=== PATIENT | male | born 1970 | race Caucasian/White ===

== ENCOUNTER 2019-03-30 12:14 | Emergency (ER) | payer SELFPAY ==
[~2019-03-30] VITALS: Ht 170.2 cm; Wt 53.5 kg
--- NOTE | 2019-03-30 12:22 | NUR ---
PT BIBRA FROM THE STREETS, ALTERED HYPOTENSIVE AND TACHYCARDIC. 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
--- NOTE | 2019-03-30 12:25 | NUR ---
SEEN AND EXAMINED BY .
[2019-03-30] MEDS ORDERED: IV NS 0.9% 1,000 ML BAG IV ONE ×2 (12:30→13:00)
--- NOTE | 2019-03-30 12:30 | NUR ---
IV LINE ESTABLISHED, BLOOD DRAWNED AND SENT TO LAB.
[2019-03-30 12:35] LABS: BASOPHILS % (AUTO) 0.4 % (0.0-2.0); HEMATOCRIT 49 % (39-51); HEMOGLOBIN 17.2 g/dL (13.5-17.5); LYMPHOCYTES # (AUTO) 0.7 /CMM (0.8-4.8); LYMPHOCYTES % (AUTO) 9.5 % (20.0-44.0); MEAN CORPUSCULAR HGB CONC 35 g/dl (31.0-36.0); MEAN CORPUSCULAR VOLUME 87 fL (80-96); MONOCYTES # (AUTO) 1.6 /CMM (0.1-1.30); NEUTROPHILS % (AUTO) 68.1 % (43.0-81.0); PLATELET COUNT (AUTO) 179 /CMM (150-450); RED BLOOD CELL COUNT(AUTO) 5.61 MIL/uL (4.5-6.0); WHITE BLOOD COUNT (AUTO) 7.4 K/uL (4.3-11.0)
--- NOTE | 2019-03-30 12:39 | NUR ---
URINE SPECIMEN COLLECTED AND SENT TO LAB.
--- NOTE | 2019-03-30 12:42 | NUR ---
LAB MANAGER AT BEDSIDE FOR XRAY.
[2019-03-30 12:43] LABS: APPEARANCE,URINE Clear (CLEAR); BILIRUBIN,URINE LARGE (NEGATIVE); BLOOD, URINE Negative Ery/uL (NEGATIVE); CARBON DIOXIDE 32 mmol/L (21-32); CHLORIDE 83 mmol/L (98-107); KETONES,URINE 15 (NEGATIVE); LEUKOCYTE ESTERASE ,URINE Negative (NEGATIVE); NITRITE, URINE Negative (NEGATIVE); PROTEIN,URINE 100 mg/dl (NEGATIVE); SODIUM SERUM 130 mmol/L (136-145); UGLUCOSE 100 MG/DL mg/dL (NEGATIVE); UROBILINOGEN,URINE >=8.0 EU/dL (0.2)
[2019-03-30 12:44] LABS: CALCIUM, SERUM 9.7 mg/dL (8.5-10.1); CREATININE 2.3 mg/dL (0.6-1.3); GLUCOSE 264 mg/dL (74-106); UREA NITROGEN, BLOOD 53 mg/dL (7-18)
[2019-03-30 12:45] LABS: POTASSIUM 2.5 mmol/L (3.5-5.1)
[2019-03-30 12:46] LABS: COLOR,URINE AMBER (YELLOW)
[2019-03-30 12:47] LABS: BACTERIA,URINE Rare /HPF (None Seen); SQUAMOUS EPITHELIAL CELL,UR Rare /HPF (None Seen); WBC,URINE 0-2 /HPF (0-3)
[2019-03-30 12:49] LABS: ALANINE AMINOTRANSFERASE 61 U/L (12-78); ALBUMIN 3.5 g/dL (3.4-5.0); ALKALINE PHOSPHATASE 114 U/L (46-116); ASPARTATE AMINOTRANSFERASE 44 U/L (15-37); BILIRUBIN,DIRECT 1.5 mg/dL (0.0-0.2); BILIRUBIN,TOTAL 3.5 mg/dL (0.2-1.0); TOTAL PROTEIN, SERUM 8.4 g/dL (6.4-8.2)
[2019-03-30] MEDS ORDERED: CEFTRIAXONE 1GM BAG (ER ONLY) 50 ML IV ONE ×2 (13:00→13:31)
[2019-03-30] MEDS ORDERED: POTASSIUM CL. PREMIX PERIPHER. 50 ML IV SCH ×2 (13:00→17:00)
[2019-03-30 13:21] LABS: ACETAMINOPHEN 0 ug/ml (10-30); ALCOHOL, BLOOD < 3 mg/dL (0-0); SALICYLATE 1.9 mg/dL (2.8-20.0)
[2019-03-30] MEDS ORDERED: POTASSIUM CL. PREMIX PERIPHER. 100 ML ONE (13:31)
--- NOTE | 2019-03-30 13:38 | NUR ---
PT WHEELED TO CT SCAN VIA [employer].
[2019-03-30] MEDS ORDERED: IV NS 0.9% 1,000 ML IV PRN (13:57)
[2019-03-30] MEDS ORDERED: MAG HYDROX/AL HYDROX/SIMETH 30 ML UDC PO PRN (14:00)
[2019-03-30] MEDS ORDERED: MAGNESIUM HYDROXIDE 30 ML UDC PO PRN (14:00)
[2019-03-30] MEDS ORDERED: ZOLPIDEM TARTRATE 5 MG TABLET PO PRN (14:00)
[2019-03-30] MEDS ORDERED: ONDANSETRON HCL/PF 4 MG/2 ML VIAL IVP PRN (14:00)
[2019-03-30] MEDS ORDERED: Z GUARD REMEDY 2 OZ OINT TP PRN (14:00)
[2019-03-30] MEDS ORDERED: HYDROCODONE/APAP 5/325MG 1 EACH TABLET PO PRN (14:00)
[2019-03-30] MEDS ORDERED: ACETAMINOPHEN 325 MG TABLET PO PRN (14:00)
[2019-03-30] MEDS ORDERED: CEFTRIAXONE 1 G in IV D5W 50 ML IV SCH (14:00)
[2019-03-30] MEDS ORDERED: PROPOFOL 100 ML IV ONE (14:23)
--- NOTE | 2019-03-30 14:25 | NUR ---
ETOMIDATE 20MG AND SUCC 120MG IVP GIVEN VERBAL ORDERED BY
--- NOTE | 2019-03-30 14:29 | NUR ---
ET TUBE INSERTED BY , ET SIZE 7.5, 23 AT THE LIP, +COLOR CHANGE, + BILATERAL CHEST RISE AND LUNG SOUND.
--- NOTE | 2019-03-30 14:29 | NUR ---
@ 1429 PT. INTUBATED BY KINDRA WILKINSON FOR AIRWAY PROTECTION WITH 7.5 ET TUBE SECURED @ 23 CM LIPLINE. CO2 COLOR CHANGED TO GOLD COLOR POST INTUBATION WITH CLEAR BREATH SOUNDS BILATERAL. CHEST RISE SYMMETRICAL ON POST INTUBATION. VENT SETTINGS BELOW PER DR. HEDRICK: AC 14 VT 500 FIO2 30% NO PEEP VENT ALARMS ARE ON AND FUNCTIONING WITH AMBUBAG @ BEDSIDE. Addendum: 03/30/19 at 1509 by DAVID ZIMMERMAN RT Amended: Links added.
[2019-03-30] MEDS ORDERED: ETOMIDATE 2 MG/ML VIAL IV ONE (14:30)
[2019-03-30] MEDS ORDERED: LEVETIRACETAM (500MG) 500 MG in IV NS 0.9% 100 ML IV ONE (14:30)
[2019-03-30] MEDS ORDERED: PROPOFOL 100 ML ONE ×3 (14:30→22:05)
[2019-03-30] MEDS ORDERED: SUCCINYLCHOLINE CHLORIDE 20 MG/ML VIAL IV ONE (14:30)
--- NOTE | 2019-03-30 14:37 | NUR ---
CALLED [facility] FOR TRANSFER, FAXED CLINICALS AND FACE SHEET; WAITING FOR CALL BACK
--- NOTE | 2019-03-30 14:40 | NUR ---
RT AT BEDSIDE FOR MECH VENT SET UP.
--- NOTE | 2019-03-30 14:45 | NUR ---
SALESPERSON FURS AT BEDSIDE FOR XRAY.
[2019-03-30] MEDS ORDERED: ENOXAPARIN SODIUM 40 MG/0.4 ML DISP.SYRIN SQ SCH (15:00)
[2019-03-30 16:24] LABS: ABG BASE EXCESS 2.7 mmol/L; ABG OXYGEN SATURATION 93.8 % (92.0-98.5); ABG PCO2 33.6 mmHg (35.0-45.0); ABG PH 7.497 (7.350-7.450); ABG PO2 68.3 mmHg (75.0-100.0); AaDO2 106.1 mmHg; COHb 1.1 % (0.5-1.5); MetHb 0.5 % (0.0-1.5); O2Hb 92.3 % (94.0-97.0); PEEP,BG 0 cm H2O; SITE, ABG Right Radial; VT, ABG 500 mL
--- NOTE | 2019-03-30 16:57 | NUR ---
TRANSFER INFO: GOING TO [facility] # FOR REPORT: [phone] ACCEPTED BY Rafy WYMAN
[2019-03-30] MEDS ORDERED: CEFTRIAXONE 1GM BAG (ER ONLY) 1 GM/50 ML PIGGYBACK IV ONE (17:00)
[2019-03-30] MEDS ORDERED: LEVETIRACETAM (500MG) 500 MG in IV NS 0.9% 100 ML IV SCH (17:00)
[2019-03-30 17:05] LABS: MAGNESIUM 2.3 mg/dL (1.8-2.4); PHOSPHORUS 1.9 mg/dL (2.5-4.9)
--- NOTE | 2019-03-30 17:05 | NUR ---
[facility] [place] # [id number]
--- NOTE | 2019-03-30 17:05 | NUR ---
CALLED FOR [facility], [phone] ETA, TRIP # [id number]
--- NOTE | 2019-03-30 19:45 | NUR ---
CALLED [facility] ER FOR REPORT NO ANSWER, RN NOT AVAILABLE.
--- NOTE | 2019-03-30 21:07 | NUR ---
MARY FROM [facility] CALLED FOR REPORT; PER MARY, GET ORDER FOR A SECOND HEAD CT, PER THEIR PROTOCOL, 2ND HEAD CT HAS TO BED DONE AFTER 4HRS. CALL THEM FOR REPORT ONCE CT RESULT IS BACK AND CALL WHEN [facility] IS HERE.
--- NOTE | 2019-03-30 21:55 | NUR ---
BACK FROM CT
[2019-03-30 22:24] VITALS: BP 103/69
--- NOTE | 2019-03-30 22:29 | NUR ---
[facility] transport in facility, report given to rn for [facility]; pt left via private ambulance -[facility], with 2 fast food crew lead, vital signs recorded per protocol, pt to [facility] er, called lashanda choi at [facility] for update, eta of 40mins. dr. hagan aware of pt transfer. dr. scott at [facility]
== END 2019-03-30 22:33 | disposition other institution (70) ==
LOC: ER 12:19
DX: I62.9 Nontraumatic intracranial hemorrhage, unspecified (principal); R41.82 Altered mental status, unspecified
CPT/HCPCS: 31500; 36415; 36600; 70450 ×2; 71045 ×2; 80048; 80076; 80305; 80307; 80329; 81001; 82140; 83605 ×2; 83735; 84100; 84145; 84443; 84484; 85025; 85730; 87040 ×2; 87081; 87086; 93005 ×2; 96361; 96365; 96368; 99291; G0480; J0696; J1953; J3480; J3490 ×3; J7030 ×5; 81000-TC; J7060